=== PATIENT | male | born 1985 ===

== ENCOUNTER 2024-04-15 13:11 | Outpatient (CLI) | payer BC | END 2024-04-15 13:12 | disposition home or self-care (01) | LOC: CSHWCC 13:11 | PROVIDERS: ATTEND Nurse Practitioner Family | DX: T23.292D Burn of second degree of multiple sites of left wrist and hand, subsequent encounter (principal) | CPT/HCPCS: 11042; 11045; 99213; G0463 ==

== ENCOUNTER 2024-04-22 15:54 | Outpatient (CLI) | payer BC | END 2024-04-22 15:55 | disposition home or self-care (01) | LOC: CSHWCC 15:54 | PROVIDERS: ATTEND Nurse Practitioner Family | DX: T23.292D Burn of second degree of multiple sites of left wrist and hand, subsequent encounter (principal) | CPT/HCPCS: 97597 ==

== ENCOUNTER 2024-05-08 10:53 | Outpatient (CLI) | payer BC | END 2024-05-08 10:54 | disposition home or self-care (01) | LOC: CSHWCC 10:53 | PROVIDERS: ATTEND Nurse Practitioner Family | DX: T23.292D Burn of second degree of multiple sites of left wrist and hand, subsequent encounter (principal) | CPT/HCPCS: 99212; G0463 ==